=== PATIENT | male | born 1985 | race Caucasian/White ===

== ENCOUNTER 2019-10-19 16:23 | Emergency (ER) | payer OTHER ==
[~2019-10-19] VITALS: Ht 200.7 cm; Wt 149.7 kg
[~2019-10-19 16:23] MED LIST: CYMBALTA60 MG PO; DILAUDID4 MG PO; LEVEMIR FL100 UNIT/2 SQ; LISINOPRIL5 MG PO; METHADONE HCL 110 M1 PO; NEURONTIN 300300 M1 PO; NEURONTIN600 MG PO; NOVOLOG100 UNIT/1 SUBQ; OXYCODONE HCL E80 MG PO; OXYCONTIN10 M1 PO; OXYCONTIN80 M1 PO; TOPROL XL25 MG PO
[2019-10-19] MEDS ORDERED: CALCIUM CARBON500 MG PO (16:48)
[2019-10-19] MEDS ORDERED: ENOXAPARIN40 MG/0.1 SUBQ (16:48)
[2019-10-19] MEDS ORDERED: TYLENOL325 M1 PO (16:48)
[2019-10-19] MEDS ORDERED: VITAMIN D250000 UNIT PO (16:49)
[2019-10-19] MEDS ORDERED: HYDROCORT-PRAMO30 G1 TOP (16:49)
[2019-10-19] MEDS ORDERED: DILAUDID 4 MG TA4 M1 PO (16:50)
[2019-10-19] MEDS ORDERED: METFORMIN HCL500 M3 PO (16:52)
[2019-10-19] MEDS ORDERED: NAPRELAN375 MG PO (16:54)
[2019-10-19] MEDS ORDERED: SUPER THERAVIT1 EACH PO (16:54)
[2019-10-19] MEDS ORDERED: SENNA8.6 MG PO (16:55)
[2019-10-19] MEDS ORDERED: ZOFRAN4 MG PO (16:55)
[2019-10-19] MEDS ORDERED: PROMS25 WY RECTAL (18:23)
[2019-10-19] MEDS ORDERED: PREDNISONE 20 M20 MG PO (18:23)
[2019-10-19] MEDS ORDERED: ONDANSETRON ODT8 MG PO (18:23)
[2019-10-19] MEDS ORDERED: PEPCID20 MG PO (18:23)
[2019-10-19 20:11] VITALS: BP 112/76
== END 2019-10-19 20:12 | disposition home or self-care (01) ==
LOC: ER 16:23
DX: L51.9 Erythema multiforme, unspecified (principal); L50.9 Urticaria, unspecified; R11.2 Nausea with vomiting, unspecified; M54.9 Dorsalgia, unspecified; G89.4 Chronic pain syndrome